=== PATIENT | male | born 1945 | race Caucasian/White ===

== ENCOUNTER → 2017-06-13 | Outpatient (CLI) | payer BC, MEDICARE ==
[2017-06-13 14:35] LABS: AUTOMATED NEUTROPHIL # 3.9 TH/MM3 (1.8-7.7); BASOPHIL % 0.8 % (0.0-2.0); EOSINOPHIL % 0.8 % (0.0-4.0); HEMATOCRIT 47.5 % (39.0-51.0); HEMOGLOBIN 15.9 GM/DL (13.0-17.0); LYMPH % 25.7 % (9.0-44.0); LYMPHOCYTE # 1.5 TH/MM3 (1.0-4.8); MEAN CELL VOLUME 94.2 FL (80.0-100.0); MEAN CORPUSCULAR HEMOGLOBIN 31.5 PG (27.0-34.0); MEAN CORPUSCULAR HGB CONC 33.4 % (32.0-36.0); MEAN PLATELET VOLUME 8.9 FL (7.0-11.0); MONO % 7.4 % (0.0-8.0); MONOCYTE # 0.4 TH/MM3 (0-0.9); NEUT % 65.3 % (16.0-70.0); PLATELET COUNT 190 TH/MM3 (150-450); RED BLOOD COUNT 5.04 MIL/MM3 (4.50-5.90); RED CELL DISTRIBUTION WIDTH 14.2 % (11.6-17.2); WHITE BLOOD COUNT 5.9 TH/MM3 (4.0-11.0)
[2017-06-13 14:40] LABS: ALBUMIN 4.1 GM/DL (3.4-5.0); ALT (GPT) 34 U/L (12-78); AMYLASE 38 U/L (25-115); AST (GOT) 18 U/L (15-37); BICARBONATE 24.6 MEQ/L (21.0-32.0); BLOOD UREA NITROGEN 16 MG/DL (7-18); C-REACTIVE PROTEIN LESS THAN 0.29 MG/DL (0.00-0.30); CALCIUM 8.9 MG/DL (8.5-10.1); CHLORIDE 107 MEQ/L (98-107); CHOLESTEROL 159 MG/DL (120-200); CREATININE 1.13 MG/DL (0.60-1.30); GLOMERULAR FILTRATION RATE 64 ML/MIN (>89); GLUCOSE,FASTING 93 MG/DL (74-99); LIPASE 171 U/L (73-393); SODIUM (NA) 139 MEQ/L (136-145)
[2017-06-13 14:43] LABS: ALKALINE PHOSPHATASE 57 U/L (45-117); CHOLESTEROL/ HDL RATIO 2.16 RATIO; HDL CHOLESTEROL 73.4 MG/DL (40.0-60.0); LDL CHOLESTEROL 77 MG/DL (0-99); TOTAL BILIRUBIN ADULT 0.7 MG/DL (0.2-1.0); TOTAL PROTEIN 7.7 GM/DL (6.4-8.2); TRIGLYCERIDES 41 MG/DL (42-150)
== END ==
LOC: ELAB 11:28
PROVIDERS: ATTEND Family Medicine
DX: R22.1 Localized swelling, mass and lump, neck (principal)
CPT/HCPCS: 36415; 80053; 80061; 82150; 83690; 85025; 86038; 86140

== ENCOUNTER 2017-10-02 02:49 | Emergency (ER) | payer BC ==
[~2017-10-02] VITALS: Ht 180.3 cm; Wt 110.0 kg
[2017-10-02] MEDS ORDERED: DIATRIZOATE MEGLUM/DIATRIZOATE SOD 120 ML BTL (for RAD DIAG) G-TUBE ONE (02:50)
[2017-10-02 02:54] VITALS: BP 121/69; PULSE 110; RESP 15; TEMP 98.4; O2SAT 97
--- NOTE | 2017-10-02 03:04 | PD ---
HPI Chief Complaint: Deli Bakery Clerk Problem Time Seen by Provider: 03:00 Travel History International Travel<30 days: No Contact w/Intl Traveler<30days: No Traveled to known affect area: No History of Present Illness HPI The patient is 71 year old male who presents to the [facility] emergency department with a history of getting up to go to the bathroom prior to arrival and when he got back into bed noticing a wetness on his shirt. Took a look at his shirt and realized that this was blood. The patient reports that he had a feeding tube placed 2 weeks ago. 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 He reports he last received chemotherapy and radiation therapy on Monday. The patient reports that he was diagnosed with cancer in May 2017. He is undergoing treatment at the [facility]. He denies having any known recent fevers, cough or congestion. He denies having any abdominal pain. A bandage was applied by fire rescue prior to arrival. Review of systems otherwise, the patient does report having some diarrhea on the chemotherapy and radiation. He reports that this has been occurring twice a day. He denies having any blood in stool or black or tarry stools. Review of systems otherwise, the patient denies having any chest pain, chest pressure, shortness of breath, urinary symptoms, or neurologic symptoms. [facility] Past Medical History Narrative Medical The patient's past medical history is significant for throat cancer. Past Surgical History Narrative Surgical The patient's past surgical history is significant for surgery related to throat cancer, [id number] placement, feeding tube placement. Social History Alcohol Use: Yes Tobacco Use: No Substance Use: No Allergies-Medications (Allergen,Severity, Reaction): Coded Allergies: No Known Allergies (Verified Allergy, Unknown, 10/02/17) Reported Meds & Prescriptions Reported Meds & Active Scripts Active No Active Prescriptions or Reported Medications Review of Systems Except as stated in HPI: all other systems reviewed are Neg General / Constitutional: No: Fever Eyes: No: Visual changes HENT: No: Headaches Cardiovascular: No: Chest Pain or Discomfort Respiratory: No: Shortness of Breath Gastrointestinal: Positive: Diarrhea, No: Nausea, Vomiting, Abdominal Pain Genitourinary: No: Dysuria Musculoskeletal: No: Pain Skin: No Rash Neurologic: No: Weakness Psychiatric: No: Depression Endocrine: No: Polydipsia Hematologic/Lymphatic: No: Easy Bruising Physical Exam Narrative General: The patient is a well-developed well-nourished male in no acute distress. Head and Neck exam: Head is normocephalic atraumatic. Eyes: EOMI, pupils are equal round and reactive to light. Nose: Midline septum with pink mucous membranes Mouth: Dentition unremarkable. Moist mucus membranes. Posterior oropharynx is not erythematous. No tonsillar hypertrophy. Uvula midline. Airway patent. Neck: No palpable lymphadenopathy. No nuchal rigidity. No thyromegaly. Cardiovascular: Regular rate and rhythm without murmurs, gallops, or rubs. No pulse deficit to the extremities on simultaneous auscultation and palpation of his radial artery. Lungs: Clear to auscultation bilaterally. No wheezes, rhonchi, or rales. Abdomen: Soft, without tenderness to palpation in all 4 quadrants of the abdomen. No guarding, rebound, or rigidity. Normal bowel sounds are audible. No tenderness on palpation of McBurney's point. Negative Coleman sign. The patient is noted to have a bandage in place surrounding a feeding tube. The bandage was gently removed. No active bleeding was noted. No hematoma formation was noted. The patient reports that he did have a suture in place previously. No suture is visible at this time. Extremities: No clubbing, cyanosis, or edema. 2+ pulses in all 4 extremities. No calf tenderness on palpation. Back: No spinous process tenderness to palpation. No costovertebral angle tenderness to palpation. Neurologic Exam: Grossly nonfocal. Skin Exam: No rash noted. Intact skin that is warm and dry. Data Data Last Documented VS Vital Signs Date Time Temp Pulse Resp B/P (MAP) Pulse Ox O2 Delivery O2 Flow Rate FiO2 10/02/17 02:54 98.4 110 15 121/69 (86) 97 Orders Orders Abdomen, Kub Only (10/02/17 ) MDM Medical Decision Making Medical Screen Exam Complete: Yes Emergency Medical Condition: Yes Medical Record Reviewed: Yes Differential Diagnosis Feeding tube dislodgment, versus suture dislodgment Narrative Course During the course of the patient's emergency department visit, the patient's history, examination, and differential diagnosis were reviewed with the patient. The patient was placed on a scrap drop engineer with oximetry and frequent blood pressure monitoring. The patient on examination appears to have his feeding in place without any active bleeding currently. Confirmation x-ray has been ordered to be done with contrast administration through the feeding tube to assess for proper location. The patient was initially provided a new dressing to his feeding tube site. Radiology studies were reviewed and remarkable for Last Impressions Abdomen X-Ray 10/02/17 0000 Signed Impressions: Service Date/Time: Monday, October 02, 2017 03:09 - CONCLUSION: 1. Small contrast injection within the G-tube reveals G-tube within the stomach. Jaxson Salter MD The patient reports that he has a follow-up appointment already scheduled this morning with his physician at the [facility]. The patient will be discharged home to follow-up with him. The patient is resting comfortably and feels better, is alert and in no distress. The patient's results and examination findings were discussed with the patient. The repeat examination is unremarkable and benign. The history, exam, diagnostic testing, and current condition do not suggest any significant pathology to warrant further testing, continued ED treatment, admission, or surgical evaluation at this point. The vital signs have been stable. The patient does not have uncontrollable pain, intractable vomiting, or other significant symptoms. The patient's condition is stable and appropriate for discharge. The patient will pursue further outpatient evaluation with a primary care physician or other designated or consulting physician as indicated in the discharge instructions. The patient expressed understanding and was agreeable with this plan. Diagnosis Primary Impression: Feeding tube dysfunction Qualified Codes: T85.598A - Other mechanical complication of other gastrointestinal prosthetic devices, implants and grafts, initial encounter Additional Impression: Bleeding Referrals: Oncologist 1 day Primary Care Physician Scripts No Active Prescriptions or Reported Meds Disposition: 01 DISCHARGE HOME Condition: Stable Sandra Aragon MD October 02, 2017 03:04
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
== END 2017-10-02 05:18 | disposition home or self-care (01) ==
LOC: NEPE 02:49
DX: C14.0 Malignant neoplasm of pharynx, unspecified (principal); T85.598A Other mechanical complication of other gastrointestinal prosthetic devices, implants and grafts, initial encounter; R58 Hemorrhage, not elsewhere classified
CPT/HCPCS: 74018; 99283; Q9963

== ENCOUNTER 2017-10-14 08:07 | Emergency (ER) | payer BC ==
[2017-10-14 08:18] VITALS: BP 137/76; PULSE 114; RESP 16; TEMP 98.9; O2SAT 98
--- NOTE | 2017-10-14 08:33 | PD ---
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 Pt just had his PICC line placed yesterday at [facility] but when his home nurse came today, said there was a lot of resistance. Denies any fever, chest pain, sob, n/v, abdominal pain, focal weakness or numbness. PFSH Past Medical History Cancer: Yes (THROAT) Gastrointestinal Disorders: Yes (G TUBE) ?: Not Past Surgical History Other Surgery: Yes (THROAT CANCER SX) Social History Alcohol Use: Yes (OCCASIONALLY) Tobacco Use: No Substance Use: No Allergies-Medications (Allergen,Severity, Reaction): Coded Allergies: No Known Allergies (Verified Allergy, Unknown, 10/02/17) Reported Meds & Prescriptions Reported Meds & Active Scripts Active No Active Prescriptions or Reported Medications Review of Systems Except as stated in HPI: all other systems reviewed are Neg Physical Exam Narrative GENERAL: 72yo M not in distress. SKIN: Focused skin assessment warm/dry. HEAD: Atraumatic. Normocephalic. EYES: Pupils equal and round. No scleral icterus. No injection or drainage. ENT: No nasal bleeding or discharge. Mucous membranes pink and moist. NECK: Trachea midline. No JVD. CARDIOVASCULAR: Regular rate and rhythm. No murmur appreciated. RESPIRATORY: No accessory muscle use. Clear to auscultation. Breath sounds equal bilaterally. GASTROINTESTINAL: Abdomen soft, non-tender, nondistended. G tube in place. MUSCULOSKELETAL: RUE: PICC line in place. Unable to flush. NEUROLOGICAL: Awake and alert. No obvious cranial nerve deficits. Motor grossly within normal limits. Normal speech. PSYCHIATRIC: Appropriate mood and affect; insight and judgment normal. Data Data Last Documented VS Vital Signs Date Time Temp Pulse Resp B/P (MAP) Pulse Ox O2 Delivery O2 Flow Rate FiO2 10/14/17 08:18 98.9 114 16 137/76 (96) 98 MDM Medical Decision Making Medical Screen Exam Complete: Yes Emergency Medical Condition: Yes Differential Diagnosis PICC line malfunction Narrative Course 72yo M with complaint of PICC line malfunction. Pt just had the PICC line inserted yesterday but the home nurse said she wasnt able to flush it today. The hub of the IV is against the skin so it was pulled back a little and new dressings applied. PICC line is now flushing normally and can be used. Return precautions given. Diagnosis Primary Impression: PIC line (peripherally inserted central catheter) flush Patient Instructions: General Instructions Departure Forms: Tests/Procedures Additional Instructions: Please follow up with your primary care physician. Return to the ED if there is any malfunction of your PICC line or any other concerns. Med/Other Pt SpecificInfo: No Change to Meds Scripts No Active Prescriptions or Reported Meds Disposition: 01 DISCHARGE HOME Condition: Stable Lesly Hilton DO October 14, 2017 08:33
[2017-10-14 09:18] VITALS: PULSE 95; RESP 17; O2SAT 97
== END 2017-10-14 09:31 | disposition home or self-care (01) ==
LOC: NEPC 08:07
DX: T82.594A Other mechanical complication of infusion catheter, initial encounter (principal); C14.0 Malignant neoplasm of pharynx, unspecified
CPT/HCPCS: 99282